=== PATIENT | male | born 1945 | race Caucasian/White ===

== ENCOUNTER 2018-08-29 12:17 | Emergency (ER) | payer MEDICARE ==
[~2018-08-29] VITALS: Ht 182.9 cm; Wt 95.5 kg
--- NOTE | 2018-08-29 12:29 | NUR ---
"HE HAS A BUNCH OF FRACTURES AND A COLLAPSED I THINK RIGHT LUNG. HE HAD A FALL ABOUT 3 WEEKS" INCREASING SOB. PAIN WENT AWAY. LOST HIS APPETITE" SEEN TODAY AT [facility]
--- NOTE | 2018-08-29 12:33 | NUR ---
DR SANCHEZ AT BEDSIDE TO EVAL PT
--- NOTE | 2018-08-29 12:50 | NUR ---
REPORT TO ALEXEY AUGUSTIN
--- NOTE | 2018-08-29 12:52 | NUR ---
REPORT RCV'D FROM ROBER AUGUSTIN. CARE ASSUMED. PT W/O DISTRESS. VSS. SPEAKING IN FULL SENTENCES. AWARE OF CURRENT POC. TAKEN TO NON CON CT AT THIS TIME.
[2018-08-29 13:13] LABS: MEAN CORPUSCULAR HEMOGLOBIN 32.5 pg (27.5-34.5); MEAN CORPUSCULAR HGB CONC 33.2 g/dL (33.2-36.2); MEAN CORPUSCULAR VOLUME 97.9 fL (81-97); PLATELET COUNT 499 x10^3/uL (130-400); RED BLOOD COUNT 4.75 x10^6/uL (4.38-5.82); RED CELL DISTRIBUTION WIDTH 13.4 % (9.4-14.8)
[2018-08-29 13:24] LABS: ALBUMIN 3.1 g/dL (3.4-5.0); ANION GAP 10 mmol/L (5-15); CALCIUM 9.2 mg/dL (8.5-10.1); CHLORIDE 97 mmol/L (98-107); CREATININE 0.91 mg/dL (0.7-1.3)
[2018-08-29 13:30] LABS: INTERNATIONAL NORMALIZED RATIO 1.04 (0.93-1.1)
[2018-08-29 13:32] LABS: MD YES
[2018-08-29 13:34] LABS: <PLATELET ESTIMATE> INCREASED; <PLT MORPHOLOGY> NORMAL PLT MORPH; <RBC MORPHOLOGY> NORMAL; BAND#(MANUAL) 0.16 x10^3/uL; BANDS%(MANUAL) 1 % (0-7); EOS#(MANUAL) 0.16 x10^3/uL (0.0-0.4); EOS% (MANUAL) 1 % (1-7); LYMPH#(MANUAL) 1.09 x10^3/uL (1-3.4); LYMPHS% (MANUAL) 7 % (22-44); MONOS#(MANUAL) 0.94 x10^3/uL (0.3-2.7); MONOS% (MANUAL) 6 % (2-9); SEG#(MANUAL) 13.26 x10^3/uL (1.8-6.8); SEGS% (MANUAL) 85 % (42-75)
[2018-08-29 13:38] VITALS: BP 162/90
--- NOTE | 2018-08-29 13:43 | NUR ---
DR SANCHEZ TO BS. PT AND FAMILY UPDATED ON CT RESULTS AND PLAN TO TRANSFER TO [facility] FOR ONGOING MANAGMENT. VSS. PT IN NO DISTRESS. SPO2 93-95% ON RA
--- NOTE | 2018-08-29 14:09 | NUR ---
report called to Dennise ODELL
== END 2018-08-29 14:21 | disposition short-term general hospital (02) ==
LOC: ED 13:49
DX: S27.1XXA Traumatic hemothorax, initial encounter (principal); S22.41XA Multiple fractures of ribs, right side, initial encounter for closed fracture; W19.XXXA Unspecified fall, initial encounter; Y93.89 Activity, other specified; Y92.89 Other specified places as the place of occurrence of the external cause; Y99.8 Other external cause status
CPT/HCPCS: 36415; 71250; 80048; 82040; 85025; 85610; 93005; 99291

== ENCOUNTER 2020-09-09 11:30 | Inpatient (IN) | payer MEDICARE ==
[~2020-09-09] VITALS: Ht 188 cm; Wt 86.0 kg
--- NOTE | 2020-09-09 12:28 | NUR ---
THIS IS A 75 YO M W/ C/O URINARY FREQUENCY AND BLOOD IN URINE SINCE LAST NIGHT. PT REPORTS ONLY HX IS ENLARGED PROSTATE (RESOLVED) X2 YEARS AGO. PT TAKES NO HOME MEDS. PT RESTING ON OutSystems W/ CALL LIGHT IN REACH, RESP EVEN AND UNLABORED, NADN.
--- NOTE | 2020-09-09 12:29 | NUR ---
PIV STARTED, LABS DRAWN.
[2020-09-09] MEDS ORDERED: SODIUM CHLORIDE FLUSH 10ML SYR IVF ONE (12:30)
[2020-09-09 12:49] LABS: BASOPHILS % (AUTO) 0 % (0-1); EOSINOPHILS % (AUTO) 0 % (1-7); LYMPHOCYTES % (AUTO) 2 % (22-44); MEAN CORPUSCULAR HEMOGLOBIN 32.8 pg (27.5-34.5); MEAN CORPUSCULAR HGB CONC 33.3 g/dL (33.2-36.2); MEAN PLATELET VOLUME 7.4 fL (7.4-10.4); MONOCYTES % (AUTO) 5 % (2-9); NEUTROPHILS % (AUTO) 93 % (42-75); PLATELET COUNT 251 x10^3/uL (130-400); RED BLOOD COUNT 4.52 x10^6/uL (4.38-5.82); RED CELL DISTRIBUTION WIDTH 13.6 % (9.4-14.8)
[2020-09-09 12:54] LABS: ALANINE AMINOTRANSFERASE 28 U/L (12-78); ALBUMIN 4.1 g/dL (3.4-5.0); ANION GAP 7 mmol/L (5-15); CALCIUM 9.2 mg/dL (8.5-10.1); CHLORIDE 108 mmol/L (98-107)
[2020-09-09 12:56] LABS: ALKALINE PHOSPHATASE 67 U/L (45-117); BILIRUBIN,TOTAL 0.9 mg/dL (0.2-1.0); CREATININE 1.57 mg/dL (0.7-1.3); TOTAL PROTEIN 7.6 g/dL (6.4-8.2)
[2020-09-09] MEDS ORDERED: OMNIPAQUE 350 MG/ML, 100ML BOTTLE ONE (13:00)
[2020-09-09 13:02] LABS: MD NO
[2020-09-09 13:18] LABS: INTERNATIONAL NORMALIZED RATIO 1.02 (0.93-1.1); PROTHROMBIN TIME 10.8 Seconds (9.6-11.5)
--- NOTE | 2020-09-09 13:33 | NUR ---
SPOKE W/ LAB UNABLE TO RUN TEST D/T INSUFFICIENT AMOUNT FOR SAMPLE. NEW URINE SAMPLE COLLECTED AND SENT TO LAB.
[2020-09-09 14:16] LABS: MICROSCOPIC INDICATED
[2020-09-09] MEDS ORDERED: CEFTRIAXONE PMX 1GM/50ML 50 ML IV ONE (14:30)
[2020-09-09] MEDS ORDERED: CEFTRIAXONE PMX 1GM/50ML 50 ML ONE (14:36)
--- NOTE | 2020-09-09 14:40 | NUR ---
PER NO BLOOD CULTURES INDICATED AT THIS TIME.
--- NOTE | 2020-09-09 15:10 | NUR ---
REPORT GIVEN TO NICK AUGUSTIN IN OR
--- NOTE | 2020-09-09 15:25 | NUR ---
[address] COELLO CATHETER INSERTED W/ 2 3L BAGS HUNG.
--- NOTE | 2020-09-09 15:25 | NUR ---
[address] COELLO CATHETER INSERTED W/ 2 3L BAGS HUNG FOR CBI
[2020-09-09] MEDS ORDERED: SODIUM CHLORIDE 0.9% 1,000ML IVBOLUS ONE (15:30)
[2020-09-09] MEDS ORDERED: FENTANYL PF 250 MCG/5ML ONE (15:49)
--- NOTE | 2020-09-09 15:49 | NUR ---
PT TO OR, AWAKE AND ALERT, ANSWERING QUESTIONS APPROPRIATELY. RESP EVEN AND UNLABORED, NADN.
--- NOTE | 2020-09-09 15:50 | NUR ---
PT W/ 1100ML OUTPUT AT TIME OF DEPARTURE. ORIGINAL BAGS STILL FLOWING.
[2020-09-09] MEDS: CEFTRIAXONE PMX 1GM/50ML 50 ML IV SCH (16:00)
[2020-09-09] MEDS ORDERED: LABETALOL 5MG/ML, 20ML IV PRN (16:30)
[2020-09-09] MEDS ORDERED: ONDANSETRON 2MG/ML, 2ML IVPush PRN ×2 (16:30)
[2020-09-09] MEDS ORDERED: FENTANYL PF 100 MCG/2ML IV PRN (16:30)
[2020-09-09] MEDS ORDERED: MEPERIDINE/PF 25MG/0.5ML IVPush PRN (16:30)
[2020-09-09] MEDS ORDERED: morphine SULFATE 10 MG/ML, 1ML IVPush PRN ×2 (16:30)
[2020-09-09] MEDS ORDERED: OXYcodone 5 MG/5 ML ORAL.SOL UDC PO PRN (16:30)
[2020-09-09] MEDS ORDERED: hydrALAzine 20 MG/ML, 1ML IV PRN (16:30)
[2020-09-09] MEDS ORDERED: ACETAMINOPHEN 325 MG TABLET PO PRN (16:30)
[2020-09-09] MEDS ORDERED: HYDROmorphone 1 MG/ML, 1ML INJ IVPush PRN (16:30)
[2020-09-09] MEDS ORDERED: ROCURONIUM 10MG/ML,5ML ONE (17:26)
[2020-09-09] MEDS ORDERED: NEOSTIGMINE 1 MG/ML, 10ML ONE (17:26)
[2020-09-09] MEDS ORDERED: GLYCOPYRROLATE 0.2MG/1ML, 5ML ONE (17:26)
[2020-09-09] MEDS ORDERED: PROPOFOL 10 MG/ML, 20ML ONE (17:26)
[2020-09-09 20:00] VITALS: BP 152/80
[2020-09-09] MEDS: SODIUM CHLORIDE 0.9% 1,000 ML IV SCH (20:15)
[2020-09-09] MEDS: ACETAMINOPHEN 325 MG TABLET PO PRN (22:50)
[2020-09-10 00:05] VITALS: BP 90/57
[2020-09-10 04:01] VITALS: BP 98/60
[2020-09-10] MEDS: SODIUM CHLORIDE 0.9% 1,000 ML IV SCH ×2 (05:41→15:24)
[2020-09-10 05:54] LABS: BASOPHILS % (AUTO) 0 % (0-1); EOSINOPHILS % (AUTO) 0 % (1-7); LYMPHOCYTES % (AUTO) 4 % (22-44); MEAN CORPUSCULAR HEMOGLOBIN 33.3 pg (27.5-34.5); MEAN CORPUSCULAR HGB CONC 33.7 g/dL (33.2-36.2); MEAN PLATELET VOLUME 7.7 fL (7.4-10.4); MONOCYTES % (AUTO) 5 % (2-9); NEUTROPHILS % (AUTO) 91 % (42-75); PLATELET COUNT 164 x10^3/uL (130-400); RED BLOOD COUNT 3.51 x10^6/uL (4.38-5.82); RED CELL DISTRIBUTION WIDTH 13.6 % (9.4-14.8)
[2020-09-10 06:04] LABS: ALANINE AMINOTRANSFERASE 19 U/L (12-78); ALBUMIN 2.7 g/dL (3.4-5.0); ANION GAP 5 mmol/L (5-15); CALCIUM 8.3 mg/dL (8.5-10.1); CHLORIDE 108 mmol/L (98-107); CREATININE 1.18 mg/dL (0.7-1.3)
[2020-09-10 06:18] LABS: MD NO
[2020-09-10 06:31] LABS: ALKALINE PHOSPHATASE 44 U/L (45-117); BILIRUBIN,TOTAL 0.9 mg/dL (0.2-1.0); TOTAL PROTEIN 5.5 g/dL (6.4-8.2)
[2020-09-10 07:59] VITALS: BP 103/67
[2020-09-10] MEDS: FINASTERIDE 5 MG TABLET PO SCH (11:33)
[2020-09-10 14:04] VITALS: BP 141/66
[2020-09-10] MEDS: CEFTRIAXONE PMX 1GM/50ML 50 ML IV SCH (15:24)
[2020-09-10 17:56] VITALS: BP 104/60
[2020-09-10] MEDS: ACETAMINOPHEN 325 MG TABLET PO PRN (18:01)
[2020-09-11 00:36] VITALS: BP 98/63
[2020-09-11] MEDS: SODIUM CHLORIDE 0.9% 1,000 ML IV SCH ×2 (04:41→14:47)
[2020-09-11 05:18] LABS: BASOPHILS % (AUTO) 1 % (0-1); EOSINOPHILS % (AUTO) 1 % (1-7); LYMPHOCYTES % (AUTO) 11 % (22-44); MEAN CORPUSCULAR HEMOGLOBIN 33.7 pg (27.5-34.5); MEAN CORPUSCULAR HGB CONC 34.3 g/dL (33.2-36.2); MEAN PLATELET VOLUME 7.8 fL (7.4-10.4); MONOCYTES % (AUTO) 9 % (2-9); NEUTROPHILS % (AUTO) 80 % (42-75); PLATELET COUNT 127 x10^3/uL (130-400); RED BLOOD COUNT 3.21 x10^6/uL (4.38-5.82); RED CELL DISTRIBUTION WIDTH 13.7 % (9.4-14.8)
[2020-09-11 05:50] LABS: ANION GAP 5 mmol/L (5-15); CHLORIDE 112 mmol/L (98-107)
[2020-09-11 06:06] LABS: CREATININE 0.94 mg/dL (0.7-1.3)
[2020-09-11 06:22] LABS: MD SCAN
[2020-09-11 07:15] VITALS: BP 102/66
[2020-09-11] MEDS: FINASTERIDE 5 MG TABLET PO SCH (07:45)
[2020-09-11 12:21] VITALS: BP 112/64
[2020-09-11] MEDS: CEFTRIAXONE PMX 1GM/50ML 50 ML IV SCH (14:47)
[2020-09-11 20:02] VITALS: BP 135/80
[2020-09-12 00:47] VITALS: BP 126/83
[2020-09-12] MEDS: SODIUM CHLORIDE 0.9% 1,000 ML IV SCH ×2 (00:52→11:46)
[2020-09-12 05:30] LABS: BASOPHILS % (AUTO) 0 % (0-1); EOSINOPHILS % (AUTO) 1 % (1-7); LYMPHOCYTES % (AUTO) 18 % (22-44); MEAN CORPUSCULAR HEMOGLOBIN 33.5 pg (27.5-34.5); MEAN CORPUSCULAR HGB CONC 34.2 g/dL (33.2-36.2); MEAN PLATELET VOLUME 7.5 fL (7.4-10.4); MONOCYTES % (AUTO) 14 % (2-9); NEUTROPHILS % (AUTO) 68 % (42-75); PLATELET COUNT 141 x10^3/uL (130-400); RED BLOOD COUNT 3.28 x10^6/uL (4.38-5.82); RED CELL DISTRIBUTION WIDTH 13.6 % (9.4-14.8)
[2020-09-12 05:34] LABS: MD NO
[2020-09-12 05:36] LABS: ANION GAP 4 mmol/L (5-15); CHLORIDE 110 mmol/L (98-107); CREATININE 0.85 mg/dL (0.7-1.3)
[2020-09-12] MEDS: FINASTERIDE 5 MG TABLET PO SCH (07:54)
[2020-09-12] MEDS: CYANOCOBALAMIN 1,000 MCG/ML, 1ML IM SCH (07:54)
[2020-09-12 08:53] VITALS: BP 119/70
[2020-09-12] MEDS: CEFTRIAXONE PMX 1GM/50ML 50 ML IV SCH (14:52)
[2020-09-12 15:33] VITALS: BP 129/73
[2020-09-12] MEDS: POTASSIUM CHLORIDE 20 MEQ TAB.ER.PRT PO SCH (17:43)
[2020-09-12 18:56] VITALS: BP 124/71
[2020-09-13 01:21] VITALS: BP 127/74
[2020-09-13 05:09] LABS: ANION GAP 4 mmol/L (5-15); CALCIUM 8.7 mg/dL (8.5-10.1); CHLORIDE 108 mmol/L (98-107)
[2020-09-13 05:11] LABS: CREATININE 0.84 mg/dL (0.7-1.3)
[2020-09-13 07:31] VITALS: BP 142/85
[2020-09-13] MEDS: POTASSIUM CHLORIDE 20 MEQ TAB.ER.PRT PO SCH ×2 (07:59→12:34)
[2020-09-13] MEDS: FINASTERIDE 5 MG TABLET PO SCH (07:59)
[2020-09-13] MEDS: CYANOCOBALAMIN 1,000 MCG/ML, 1ML IM SCH (10:29)
[2020-09-13 12:40] VITALS: BP 141/87
[2020-09-13] MEDS ORDERED: CEFD300C37 PO ×3 (15:04→15:23)
[2020-09-13] MEDS ORDERED: FINA5TAB4 PO (15:04)
[2020-09-13] MEDS: CEFTRIAXONE PMX 1GM/50ML 50 ML IV SCH (15:14)
[2020-09-15] MEDS ORDERED: CIPR250T27 PO (13:59)
== END 2020-09-13 18:19 | disposition home or self-care (01) | DRG 853 ==
LOC: ED 12:04 → EDIP 15:04 → 4NE 19:07
PROVIDERS: ADMIT Internal Medicine; ATTEND Family Medicine
PROC: 0TCB8ZZ Extirpation of Matter from Bladder, Via Natural or Artificial Opening Endoscopic (ICD-10-PCS; 2020-09-09)
PROC: 0V508ZZ Destruction of Prostate, Via Natural or Artificial Opening Endoscopic (ICD-10-PCS; principal; 2020-09-09 16:00)
DX: A41.9 Sepsis, unspecified organism (principal); N17.0 Acute kidney failure with tubular necrosis; D62 Acute posthemorrhagic anemia; N39.0 Urinary tract infection, site not specified; Z20.822 Contact with and (suspected) exposure to COVID-19; R31.0 Gross hematuria; D75.89 Other specified diseases of blood and blood-forming organs; E88.09 Other disorders of plasma-protein metabolism, not elsewhere classified; E53.8 Deficiency of other specified B group vitamins
CPT/HCPCS: 36415; 74178; 80048; 80053; 81001; 82607; 83735; 84443; 85025; 85610; 86850; 86900; 87077; 87086; 87186; 87635; G0378; J0696; J2704; J2710; J3010; Q9967; J3420; J7030

== ENCOUNTER 2021-02-24 13:36 | Inpatient (IN) | payer MEDICARE ==
[~2021-02-24] VITALS: Ht 188 cm; Wt 91.1 kg
[~2021-02-24 13:36] MED LIST: CEFD300C37 PO; CIPR250T27 PO; FINA5TAB4 PO
--- NOTE | 2021-02-24 14:00 | NUR ---
SEE TRIAGE. PT PLACED ON ALL ROOM MONITORING. WARM BLANKET PROVIDED. SALINE GUAZE TO R BROW-POSSIBLE LAC VS ABRASION. PT ADVISED OF HIGH FALL RISK, CALL LIGHT WITHIN REACH.
--- NOTE | 2021-02-24 14:39 | NUR ---
TASK RN: ASSISTED PT WITH URINAL. PT TRANSPORTED TO CT.
[2021-02-24 14:40] LABS: ALANINE AMINOTRANSFERASE 25 U/L (12-78); ALBUMIN 3.1 g/dL (3.4-5.0); ANION GAP 11 mmol/L (5-15); CHLORIDE 104 mmol/L (98-107)
[2021-02-24 14:42] LABS: ALKALINE PHOSPHATASE 47 U/L (45-117); BILIRUBIN,TOTAL 0.4 mg/dL (0.2-1.0); TOTAL PROTEIN 6.4 g/dL (6.4-8.2)
[2021-02-24 14:50] LABS: BASOPHILS % (AUTO) 1 % (0-1); EOSINOPHILS % (AUTO) 0 % (1-7); LYMPHOCYTES % (AUTO) 7 % (22-44); MEAN CORPUSCULAR HEMOGLOBIN 31.9 pg (27.5-34.5); MEAN CORPUSCULAR HGB CONC 33.3 g/dL (33.2-36.2); MEAN PLATELET VOLUME 6.9 fL (7.4-10.4); MONOCYTES % (AUTO) 6 % (2-9); NEUTROPHILS % (AUTO) 86 % (42-75); PLATELET COUNT 291 x10^3/uL (130-400); RED BLOOD COUNT 4.02 x10^6/uL (4.38-5.82); RED CELL DISTRIBUTION WIDTH 16.2 % (9.4-14.8)
[2021-02-24] MEDS ORDERED: DIPH,PERTUSS(ACELL),TET VAC/PF 0.5 ML IM-VACC ONE ×2 (15:00→15:20)
--- NOTE | 2021-02-24 15:00 | NUR ---
UA SAMPLE COLLECTED.
[2021-02-24 15:19] LABS: MICROSCOPIC INDICATED
--- NOTE | 2021-02-24 15:35 | NUR ---
ADD ON ORDERS FOR LACTIC, BC X 2, CXR, ANTIBIOTIC.
--- NOTE | 2021-02-24 15:54 | NUR ---
LAB IN TO DRAW.
[2021-02-24] MEDS ORDERED: CEFTRIAXONE 1,000 MG in DEXTROSE 5% 50 ML IVPB ONE (16:00)
[2021-02-24] MEDS ORDERED: SODIUM CHLORIDE 0.9% 1,000ML IVBOLUS ONE (16:30)
--- NOTE | 2021-02-24 16:35 | NUR ---
IV NS BOLUS INFUSING. ANTIBIOTIC INFUSING AFTER VERIFICATION BC X 2 DRAWN PRIOR. AWAITING ADMIT ORDER.
--- NOTE | 2021-02-24 17:32 | NUR ---
ATTEMPT TO CALL REPORT, NO ANSWER AT [facility].
--- NOTE | 2021-02-24 17:42 | NUR ---
ATTEMPT X 2 TO CALL REPORT, RN UNAVAILABLE, TO CALL BACK.
[2021-02-24] MEDS ORDERED: BISACODYL 10 MG SUPP PR PRN (18:00)
[2021-02-24] MEDS ORDERED: ONDANSETRON ODT 4 MG PO PRN (18:00)
[2021-02-24] MEDS ORDERED: POLYETHYLENE GLYCOL 17 GM PACKET PO PRN (18:00)
[2021-02-24] MEDS ORDERED: ACETAMINOPHEN 325 MG TABLET PO PRN (18:00)
[2021-02-24 18:32] LABS: TROPONIN I 0.143 ng/mL (0.000-0.045)
[2021-02-24] MEDS: SODIUM CHLORIDE 0.9% 1,000 ML IV SCH (21:12)
[2021-02-24] MEDS: HEPARIN 5,000 UNITS/ML, 1ML SQ SCH (21:12)
[2021-02-24 21:24] VITALS: BP 162/88
[2021-02-24 21:28] VITALS: BP 163/102
[2021-02-24 21:36] VITALS: BP 164/102
[2021-02-25 02:26] VITALS: BP 150/86
[2021-02-25 02:31] VITALS: BP 162/90
[2021-02-25 02:41] VITALS: BP 146/90
[2021-02-25] MEDS: HEPARIN 5,000 UNITS/ML, 1ML SQ SCH ×3 (05:08→20:58)
[2021-02-25 05:15] LABS: BASOPHILS % (AUTO) 1 % (0-1); EOSINOPHILS % (AUTO) 1 % (1-7); LYMPHOCYTES % (AUTO) 20 % (22-44); MEAN CORPUSCULAR HEMOGLOBIN 32.1 pg (27.5-34.5); MEAN PLATELET VOLUME 7.1 fL (7.4-10.4); MONOCYTES % (AUTO) 11 % (2-9); NEUTROPHILS % (AUTO) 68 % (42-75); PLATELET COUNT 256 x10^3/uL (130-400); RED BLOOD COUNT 4.14 x10^6/uL (4.38-5.82); RED CELL DISTRIBUTION WIDTH 16.7 % (9.4-14.8)
[2021-02-25 05:19] LABS: ANION GAP 8 mmol/L (5-15); CALCIUM 8.1 mg/dL (8.5-10.1); CHLORIDE 106 mmol/L (98-107)
[2021-02-25 05:23] LABS: CREATININE 0.97 mg/dL (0.7-1.3); TROPONIN I 0.181 ng/mL (0.000-0.045)
[2021-02-25] MEDS: SODIUM CHLORIDE 0.9% 1,000 ML IV SCH ×2 (06:34→16:39)
[2021-02-25 06:47] VITALS: BP 157/84
[2021-02-25] MEDS: SENNA/DOCUSATE TABLET PO SCH (10:18)
[2021-02-25 12:10] VITALS: BP 147/81
[2021-02-25 12:10] LABS: TROPONIN I 0.087 ng/mL (0.000-0.045)
[2021-02-25] MEDS: CEFTRIAXONE 1,000 MG in DEXTROSE 5% 50 ML IVPB SCH (16:37)
[2021-02-25 21:10] VITALS: BP 150/93
[2021-02-26 00:01] VITALS: BP 145/83
[2021-02-26] MEDS: HEPARIN 5,000 UNITS/ML, 1ML SQ SCH ×3 (05:07→20:23)
[2021-02-26] MEDS: SODIUM CHLORIDE 0.9% 1,000 ML IV SCH (05:08)
[2021-02-26 06:41] VITALS: BP 161/86
[2021-02-26] MEDS ORDERED: REGADENOSON 0.4 MG/5 ML SYRINGE ONE (08:51)
[2021-02-26] MEDS: SENNA/DOCUSATE TABLET PO SCH (11:22)
[2021-02-26 12:05] VITALS: BP 156/95
[2021-02-26] MEDS: CEFTRIAXONE 1,000 MG in DEXTROSE 5% 50 ML IVPB SCH (15:49)
[2021-02-26 18:33] VITALS: BP 131/72
[2021-02-27 00:49] VITALS: BP 138/78
[2021-02-27] MEDS: HEPARIN 5,000 UNITS/ML, 1ML SQ SCH ×2 (04:45→14:00)
[2021-02-27 07:16] VITALS: BP 123/71
[2021-02-27] MEDS: SENNA/DOCUSATE TABLET PO SCH (08:16)
[2021-02-27 12:27] VITALS: BP 161/83
[2021-02-27] MEDS: CEFTRIAXONE 1,000 MG in DEXTROSE 5% 50 ML IVPB SCH (15:39)
[2021-02-27] MEDS ORDERED: CEFD300C37 PO (16:10)
== END 2021-02-27 18:25 | disposition home or self-care (01) | DRG 689 ==
LOC: ED 14:44 → EDIP 16:52 → 4EST 18:09
PROVIDERS: ADMIT Hospitalist; ATTEND Hospitalist
DX: N39.0 Urinary tract infection, site not specified (principal); G93.41 Metabolic encephalopathy; E87.2 Acidosis; E87.1 Hypo-osmolality and hyponatremia; E86.0 Dehydration; D64.9 Anemia, unspecified; F12.90 Cannabis use, unspecified, uncomplicated; F17.200 Nicotine dependence, unspecified, uncomplicated; X58.XXXA Exposure to other specified factors, initial encounter; I10 Essential (primary) hypertension; S00.81XA Abrasion of other part of head, initial encounter; Z82.49 Family history of ischemic heart disease and other diseases of the circulatory system; Z87.440 Personal history of urinary (tract) infections; Y93.89 Activity, other specified; Y92.89 Other specified places as the place of occurrence of the external cause; Y99.8 Other external cause status; Z23 Encounter for immunization
CPT/HCPCS: 36415; 70450; 71045; 78452; 80048; 80053; 80320; 81001; 83605; 84484; 85025; 87040; 87077; 87086; 87186; 90471; 90715; 93005; 93017; 96374; 99285; G0378; J0696; J1644; J2785; 92523-GN; A9502; G0480; J7030